=== PATIENT | male | born 1950 | race Caucasian/White ===

== ENCOUNTER 2017-02-19 01:38 | Inpatient (IN) | payer MEDICARE, MEDICAID ==
[~2017-02-19] VITALS: Ht 165.1 cm; Wt 78.0 kg
[2017-02-19] MEDS ORDERED: ALBUTEROL (0.083%) 2.5MG/3ML NEB HHN STA (01:56)
[2017-02-19 02:15] LABS: BASOPHILS % 0.2 % (0.0-2.0); EOSINOPHILS % 2.5 % (0.0-5.0); HEMATOCRIT. 41.1 % (42.0-52.0); HEMOGLOBIN. 13.8 g/dL (14.0-18.0); LYMPHOCYTES % 30.5 % (20.0-50.0); MEAN CORPUSCULAR HEMOGLOBIN 31.5 pg (28.0-32.0); MEAN PLATELET VOLUME 9.2 fl (7.4-10.4); MONOCYTES % 8.1 % (2.0-8.0); NEUTROPHILS % 58.7 % (40.0-76.0); PLATELET 191 x1000/uL (130-400); RED BLOOD CELL COUNT 4.37 mill/uL (4.7-6.1); RED CELL DISTRIBUTION WIDTH 15.5 % (11.6-14.6)
[2017-02-19 02:21] LABS: INR 1.2; PROTHROMBIN TIME 12.2 sec (9.4-11.6)
[2017-02-19 02:32] LABS: CARBON DIOXIDE 26 mEq/L (21-32); CHLORIDE 105 mEq/L (98-107); TROPONIN I 0.04 ng/mL (0.00-0.04)
[2017-02-19] MEDS ORDERED: FUROSEMIDE 40MG/4ML VIAL IVP ONE (03:15)
[2017-02-19] MEDS ORDERED: ASPIRIN 81MG TABLET PO ONE (03:15)
[2017-02-19] MEDS ORDERED: POTASSIUM CHLORIDE 20MEQ TABLET SR PO ONE (03:15)
[2017-02-19] MEDS ORDERED: ACETAMINOPHEN WITH CODEINE 300/30MG TABLET PO ONE (04:30)
[2017-02-19 07:31] VITALS: BP 120/75
[2017-02-19 08:00] VITALS: BP 102/63
[2017-02-19] MEDS ORDERED: POTASSIUM CHLORIDE 20MEQ/PACKET PO ONE (08:37)
[2017-02-19] MEDS ORDERED: DEXTROSE 50% WATER 50ML SYRINGE IV PRN (08:45)
[2017-02-19] MEDS: CARVEDILOL 3.125 MG TABLET PO SCH ×2 (08:50→21:01)
[2017-02-19] MEDS: LISINOPRIL 10MG TABLET PO SCH (08:51)
[2017-02-19] MEDS: ENOXAPARIN 40MG/0.4ML SYR SUBCUT SCH (09:30)
[2017-02-19] MEDS: FUROSEMIDE 40MG/4ML VIAL IVP SCH ×2 (09:30→20:56)
[2017-02-19] MEDS: ASPIRIN 325MG EC TABLET PO SCH (09:31)
[2017-02-19] MEDS: POTASSIUM CHLORIDE 20MEQ/PACKET PO SCH ×3 (09:31→13:43)
[2017-02-19 12:30] VITALS: BP 113/72
[2017-02-19] MEDS: BLOOD SUGAR DIAGNOSTIC STRIP TEST SCH ×3 (12:31→21:10)
[2017-02-19] MEDS: INSULIN LISPRO 100 UNITS/ML SUBCUT SCH ×3 (12:32→21:09)
[2017-02-19] MEDS: FLUTICASONE PROPIONATE 50MCG/SPRAY BOTTLE BOTHNSTRLS SCH ×2 (13:54→23:07)
[2017-02-19 16:00] VITALS: BP 105/65
[2017-02-19] MEDS: HYDROCODONE/ACETAMINOPHEN 10/325MG TABLET PO PRN ×2 (16:09→23:08)
[2017-02-19] MEDS ORDERED: ATOR-2 PO (19:07)
[2017-02-19] MEDS ORDERED: FAMO20TA8 PO (19:07)
[2017-02-19] MEDS ORDERED: SACU1TAB PO (19:07)
[2017-02-19] MEDS ORDERED: CARV6.2548 PO (19:07)
[2017-02-19] MEDS ORDERED: GLIP5TAB12 PO (19:07)
[2017-02-19] MEDS ORDERED: GABA-531 PO (19:07)
[2017-02-19] MEDS ORDERED: METF10002 PO (19:07)
[2017-02-19] MEDS ORDERED: CLOP75TA16 PO (19:07)
[2017-02-19 20:00] VITALS: BP 125/76
[2017-02-19] MEDS: INSULIN DETEMIR UD 100 UNITS/ML SYR SUBCUT SCH (23:29)
[2017-02-20] VITALS: BP 96/57
[2017-02-20 04:00] VITALS: BP 95/57
[2017-02-20 06:17] LABS: BASOPHILS % 2.5 % (0.0-2.0); EOSINOPHILS % 3.3 % (0.0-5.0); HEMATOCRIT. 40.4 % (42.0-52.0); HEMOGLOBIN. 13.4 g/dL (14.0-18.0); LYMPHOCYTES % 29.1 % (20.0-50.0); MEAN CORPUSCULAR HEMOGLOBIN 31.1 pg (28.0-32.0); MEAN PLATELET VOLUME 9.6 fl (7.4-10.4); MONOCYTES % 7.7 % (2.0-8.0); NEUTROPHILS % 57.4 % (40.0-76.0); PLATELET 199 x1000/uL (130-400); RED BLOOD CELL COUNT 4.29 mill/uL (4.7-6.1); RED CELL DISTRIBUTION WIDTH 15.3 % (11.6-14.6)
[2017-02-20] MEDS: BLOOD SUGAR DIAGNOSTIC STRIP TEST SCH ×4 (06:50→21:29)
[2017-02-20] MEDS: INSULIN LISPRO 100 UNITS/ML SUBCUT SCH ×4 (07:04→21:31)
[2017-02-20 07:39] LABS: CARBON DIOXIDE 27 mEq/L (21-32); CHLORIDE 104 mEq/L (98-107)
[2017-02-20 08:00] VITALS: BP 99/64
[2017-02-20] MEDS: CARVEDILOL 3.125 MG TABLET PO SCH ×2 (09:00→21:27)
[2017-02-20] MEDS: LISINOPRIL 10MG TABLET PO SCH (09:00)
[2017-02-20] MEDS: ASPIRIN 325MG EC TABLET PO SCH (09:17)
[2017-02-20] MEDS: ENOXAPARIN 40MG/0.4ML SYR SUBCUT SCH (09:18)
[2017-02-20] MEDS: FLUTICASONE PROPIONATE 50MCG/SPRAY BOTTLE BOTHNSTRLS SCH ×2 (09:18→21:27)
[2017-02-20] MEDS: FUROSEMIDE 40MG/4ML VIAL IVP SCH ×2 (09:18→21:27)
[2017-02-20 12:00] VITALS: BP 121/70
[2017-02-20] MEDS: HYDROCODONE/ACETAMINOPHEN 10/325MG TABLET PO PRN ×2 (15:55→21:45)
[2017-02-20 16:00] VITALS: BP 107/75
[2017-02-20 20:00] VITALS: BP 115/58
[2017-02-20] MEDS: INSULIN DETEMIR UD 100 UNITS/ML SYR SUBCUT SCH (21:32)
[2017-02-21] VITALS: BP 115/58
[2017-02-21 04:14] VITALS: BP 102/63
[2017-02-21] MEDS: BLOOD SUGAR DIAGNOSTIC STRIP TEST SCH ×3 (06:12→16:24)
[2017-02-21] MEDS: INSULIN LISPRO 100 UNITS/ML SUBCUT SCH ×3 (06:22→16:24)
[2017-02-21] MEDS: HYDROCODONE/ACETAMINOPHEN 10/325MG TABLET PO PRN (06:25)
[2017-02-21 08:00] VITALS: BP 110/89
[2017-02-21 08:34] LABS: BASOPHILS % 1.3 % (0.0-2.0); EOSINOPHILS % 2.5 % (0.0-5.0); HEMATOCRIT. 40.6 % (42.0-52.0); HEMOGLOBIN. 13.5 g/dL (14.0-18.0); LYMPHOCYTES % 20.9 % (20.0-50.0); MEAN CORPUSCULAR HEMOGLOBIN 31.2 pg (28.0-32.0); MEAN CORPUSCULAR VOLUME 93.9 fL (80.0-94.0); MEAN PLATELET VOLUME 9.8 fl (7.4-10.4); MONOCYTES % 6.8 % (2.0-8.0); NEUTROPHILS % 68.5 % (40.0-76.0); PLATELET 205 x1000/uL (130-400); RED BLOOD CELL COUNT 4.32 mill/uL (4.7-6.1); RED CELL DISTRIBUTION WIDTH 15.1 % (11.6-14.6)
[2017-02-21] MEDS: FLUTICASONE PROPIONATE 50MCG/SPRAY BOTTLE BOTHNSTRLS SCH (08:36)
[2017-02-21] MEDS: LISINOPRIL 10MG TABLET PO SCH (08:37)
[2017-02-21] MEDS: CARVEDILOL 3.125 MG TABLET PO SCH (08:38)
[2017-02-21] MEDS: ENOXAPARIN 40MG/0.4ML SYR SUBCUT SCH (08:38)
[2017-02-21] MEDS: FUROSEMIDE 40MG/4ML VIAL IVP SCH (08:38)
[2017-02-21] MEDS: ASPIRIN 325MG EC TABLET PO SCH (08:38)
[2017-02-21 08:58] LABS: CARBON DIOXIDE 28 mEq/L (21-32); CHLORIDE 100 mEq/L (98-107)
[2017-02-21 12:00] VITALS: BP 116/92
[2017-02-21 13:10] LABS: BG BASE EXCESS 3.1 mmol/L (-2.0-2.0); BG CARBOXYHEMOGLOBIN 0.9 % (0.5-1.5); BG DEOXYHEMOGLOBIN 9.5 % (0.0-5.0); BG HCO3 ACT 27.1 mmol/L (22.0-26.0); BG METHEMOGLOBIN 0.1 % (0.0-1.5); BG OXYGEN SATURATION 90.4 % (92.0-98.5); BG OXYHEMOGLOBIN 89.5 % (94.0-97.0); BG PCO2 39.3 mmHg (35.0-45.0); BG PH 7.456 (7.350-7.450); BG SAMPLE SITE RIGHT RADIAL; BG TOTAL HEMOGLOBIN 14.6 g/dL (12.0-18.0); BG VENT MODE ROOM AIR
[2017-02-21] MEDS ORDERED: POTASSIUM CHLORIDE 20MEQ/PACKET PO SCH (14:30)
[2017-02-21 16:00] VITALS: BP 112/79
[2017-02-21 18:00] VITALS: BP 111/60
== END 2017-02-21 19:10 | disposition home or self-care (01) | DRG 291 ==
LOC: ER 01:38 → 5WST 03:16 → ENRESERV 03:48 → 5WST 05:40
PROVIDERS: ADMIT Internal Medicine; ATTEND Internal Medicine
DX: I11.0 Hypertensive heart disease with heart failure (principal); J96.20 Acute and chronic respiratory failure, unspecified whether with hypoxia or hypercapnia; J44.9 Chronic obstructive pulmonary disease, unspecified; Z95.1 Presence of aortocoronary bypass graft; E11.9 Type 2 diabetes mellitus without complications; E78.5 Hyperlipidemia, unspecified; E87.6 Hypokalemia; F17.210 Nicotine dependence, cigarettes, uncomplicated; I25.10 Atherosclerotic heart disease of native coronary artery without angina pectoris; Z86.73 Personal history of transient ischemic attack (TIA), and cerebral infarction without residual deficits; Z79.84 Long term (current) use of oral hypoglycemic drugs; Z95.0 Presence of cardiac pacemaker; I25.2 Old myocardial infarction; Z79.899 Other long term (current) drug therapy; I50.23 Acute on chronic systolic (congestive) heart failure
CPT/HCPCS: 36415; 36600; 71010; 80048; 80053; 82375; 82805; 82962; 83880; 84484; 85025; 85610; 93005; 93306; 94620; 94640; 96374; 99285; J1650; J1815; J1940; J7611